=== PATIENT | female | born 1985 | race Caucasian/White ===

== ENCOUNTER 2016-12-07 16:29 | Inpatient (IN) | payer BC ==
[2016-12-07] VITALS (40 sets, daily range): BP systolic 69–153; BP diastolic 44–109; PULSE 98–148; RESP 16–18; TEMP 98.5
[~2016-12-07] VITALS: Ht 152.4 cm; Wt 94.8 kg
--- NOTE | 2016-12-07 17:43 | PD ---
HPI Chief Complaint contractions Date Seen: Dec 07, 2016 Travel History International Travel<30 Days: No Contact w/Intl Traveler<30Days: No Known Affected Area: No History of Present Illness HPI This is a 31y/o at 37w who presents to the [facility] with reports of contractions since last night. She reports the pain has been pretty consistent for the last 12 hours. She denies vaginal bleeding or leakage of fluid with reports of active movements. She plans for a TOLAC and will likely elect for an epidural. care with Dr. Desai, complicated by: 1. Previous c/s desires TOLAC 2. demise of at 7 weeks of age due to SIDS Para: 1 : 2 History Past Medical History Medical History: Denies Significant Hx Obstetric History Obstetric History 09/29/2015 41w5d Primary c/s due to NRFHT, Male 8lb7oz Past Surgical History Narrative Surgical Previous c/s Family History Family History: Negative Social History Alcohol Use: No Tobacco Use: No Substance Abuse: No Review of Systems Except as stated in HPI: all other systems reviewed are Neg Physical Exam Narrative GENERAL: Well-nourished, well-developed patient. SKIN: Warm and dry. HEAD: Normocephalic and atraumatic. EYES: No scleral icterus. No injection or drainage. ENT: No nasal drainage noted. Mucous membranes pink. Airway patent. NECK: Supple, trachea midline. No JVD. CARDIOVASCULAR: Regular rate and rhythm without murmurs, gallops, or rubs. RESPIRATORY: Breath sounds equal bilaterally. No accessory muscle use. BREASTS: Bilateral exam showed no masses , no retractions, no nipple discharge. ABDOMEN/GI: Abdomen soft, non-tender, bowel sounds present, no rebound, no guarding Gravid to 37 weeks size GENITOURINARY: External Genitalia: intact and normal in appearance Cervix: 4-5/70/-1 Membranes: intact Uterine Contractions: q 1-2 minutes apart Presentation: cephalic on bedside ultrasound FHT's: Category: 1 EXTREMITIES: No cyanosis or edema. BACK: Nontender without obvious deformity. No CVA tenderness. NEUROLOGICAL: Awake and alert. Motor and sensory grossly within normal limits. Five out of 5 muscle strength in all muscle groups. Normal speech. Data Data Vital Signs Reviewed: Yes Orders Ob (2e) Additional Admit Info (12/07/16 17:29) MDM Medical Record Reviewed: No Narrative Course / MDM This is a 31y/o at 37w with previous c/s desires TOLAC. -reassuring status -GBS negative per patient Plan -Admit for delivery, TOLAC -epidural when desires -Dr. Ramos aware Diagnosis Diagnosis: Primary Impression: Previous delivery affecting Additional Impression: 37 weeks gestation of Sushma Guerin MD Dec 07, 2016 17:43
[2016-12-07] MEDS ORDERED: LACTATED RINGER'S 1000 ML INJ 1,000 ML IV SCH (17:44)
[2016-12-07] MEDS ORDERED: LACTATED RINGER'S 1000 ML INJ 1,000 ML IV PRN (17:44)
[2016-12-07] MEDS ORDERED: SODIUM CHLORID 0.9% 500 ML INJ 500 ML IV PRN (17:45)
[2016-12-07] MEDS ORDERED: LIDOCAINE HCL 1% 50 ML VIAL I-DERMAL PRN (17:45)
[2016-12-07] MEDS ORDERED: MINERAL OIL 10 ML VIAL TOPICAL PRN (17:45)
[2016-12-07] MEDS ORDERED: ONDANSETRON HCL 4 MG/2 ML VIAL IV PRN (17:45)
[2016-12-07] MEDS ORDERED: CITRIC ACID-SODIUM CITRATE LIQ 30 ML UDC PO SCH (17:45)
[2016-12-07] MEDS ORDERED: OXYTOCIN 30 UNITS-500ML PREMIX 500 ML IV ONE (17:45)
[2016-12-07] MEDS ORDERED: LIDOCAINE HCL 1% 50 ML VIAL INFIL PRN (17:45)
[2016-12-07] MEDS ORDERED: SODIUM CHLOR 0.9% 1000 ML INJ 1,000 ML IV PRN (18:04)
[2016-12-07 18:09] LABS: AUTOMATED NEUTROPHIL # 15.3 TH/MM3 (1.8-7.7); BASOPHIL % 0.3 % (0.0-2.0); EOSINOPHIL % 0.1 % (0.0-4.0); HEMATOCRIT 41.4 % (35.0-46.0); HEMO FLAGS DIFF FINAL; LYMPHOCYTE # 1.6 TH/MM3 (1.0-4.8); MEAN CELL VOLUME 91.9 FL (80.0-100.0); MEAN CORPUSCULAR HEMOGLOBIN 30.6 PG (27.0-34.0); MEAN CORPUSCULAR HGB CONC 33.3 % (32.0-36.0); MONO % 4.8 % (0.0-8.0); NEUT % 85.8 % (16.0-70.0); PLATELET COUNT 197 TH/MM3 (150-450); RED BLOOD COUNT 4.51 MIL/MM3 (4.00-5.30); RED CELL DISTRIBUTION WIDTH 13.6 % (11.6-17.2); WHITE BLOOD COUNT 17.8 TH/MM3 (4.0-11.0)
[2016-12-07 18:10] LABS: BLOOD, URINE NEG (NEG); COMMENT (UR) CULT NOT INDICATED; CULTURE IF INDICATED CULT NOT INDICATED; GLUCOSE,URINE TRACE mg/dL (NEG); KETONE, URINE 10 mg/dL (NEG); MUCUS URINE FEW /lpf (OCC); NITRITE,URINE NEG (NEG); SQUAMOUS EPITHELIAL CELL URINE 3 /hpf (0-5); URINE COLOR YELLOW (YELLW/STRAW)
[2016-12-07] MEDS ORDERED: fentaNYL 2MCG-BUPIV 0.125% INJ 100 ML ONE (18:28)
[2016-12-07] MEDS ORDERED: ePHEDrine/NS 25 MG/5 ML SYR ONE (18:35)
[2016-12-07] MEDS ORDERED: ePHEDrine/NS 25 MG/5 ML SYR IV PRN (19:45)
[2016-12-07] MEDS ORDERED: DO NOT ADMINISTER ANTICOAGULANTS PRN (20:00)
[2016-12-07] MEDS ORDERED: fentaNYL 2MCG-BUPIV 0.125% 100 ML EPIDURAL SCH (20:00)
[2016-12-07] MEDS ORDERED: NO SYSTEM NARCOTICS PRN (20:00)
--- NOTE | 2016-12-07 22:59 | PD.OB.DELI ---
Delivery Date: Dec 07, 2016 Anesthesia: Epidural Episiotomy: None Vaginal Delivery: Normal Presentation: Occiput anterior Nuchal Cord: x2 Delayed cord clamping (45 sec): No Infant: Male, Single One Minute : 8 Five Minute : 9 Weight: 6-15 Placenta: Spontaneous delivery, Intact, 3 vessel cord Laceration: Vaginal laceration, 2 deg (repaired with 2-0 chromic in running fashion) Additional Information right labial laceration repaired with 2-0 chromic in running fashion left periurethral laceration repaired with 3-0 chromic in running fashion Dioni Ramos MD Dec 07, 2016 22:59
[2016-12-08 02:10] VITALS: BP 110/68; PULSE 109; RESP 18; TEMP 99
[2016-12-08] MEDS ORDERED: ONDANSETRON ODT 4 MG TAB PO PRN (05:30)
[2016-12-08] MEDS ORDERED: WITCH HAZEL 50%/GLYCERIN 12.5% 40 PAD JAR TOPICAL PRN (05:30)
[2016-12-08] MEDS ORDERED: DISCONTINUE ALL PREVIOUS ORDERS ONE (05:30)
[2016-12-08] MEDS ORDERED: ALUMINUM/MAGNESIUM/SIMETH 30 ML CUP PO PRN (05:30)
[2016-12-08] MEDS ORDERED: BENZOCAINE 20% TOPICAL SPRAY 60 ML CAN TOPICAL PRN (05:30)
[2016-12-08] MEDS ORDERED: DOCUSATE SODIUM 50 MG/SENNA 8.6 MG TAB PO PRN (05:30)
[2016-12-08] MEDS ORDERED: ZOLPIDEM TARTRATE 5 MG TAB PO PRN (05:30)
[2016-12-08] MEDS: IBUPROFEN 600 MG TAB PO PRN ×3 (05:34→20:24)
[2016-12-08] MEDS: ACETAMINOPHEN 325 MG TAB PO PRN ×3 (05:34→20:25)
[2016-12-08 07:53] VITALS: BP 110/98; PULSE 78; RESP 18; TEMP 98
--- NOTE | 2016-12-08 10:49 | HHI.OB ---
Subjective Post Day: 1 Remarks pain controlled, mod lochia, izabella po, +void/flatus Objective Vitals/I&O Vital Signs Date Time Temp Pulse Resp B/P Pulse Ox O2 Delivery O2 Flow Rate FiO2 12/08/16 07:53 78 18 110/98 12/08/16 07:53 98.0 12/08/16 02:10 99.0 12/08/16 02:10 109 18 110/68 12/07/16 23:38 18 12/07/16 23:15 18 12/07/16 22:45 18 12/07/16 22:31 104 101/67 12/07/16 22:30 18 12/07/16 22:03 18 12/07/16 22:01 135 90/44 12/07/16 21:31 111 103/54 12/07/16 21:24 18 12/07/16 21:16 106 103/55 12/07/16 21:15 18 12/07/16 21:01 98 107/72 12/07/16 21:00 18 12/07/16 20:47 108 153/90 12/07/16 20:30 105 131/86 12/07/16 20:29 18 12/07/16 20:16 121 119/75 12/07/16 20:15 98.5 12/07/16 20:03 18 12/07/16 20:01 102 121/85 12/07/16 20:00 18 12/07/16 19:45 18 12/07/16 19:45 100/73 12/07/16 19:32 109 69/45 12/07/16 19:30 18 12/07/16 19:25 102 12/07/16 19:20 99 12/07/16 19:16 105 95/60 12/07/16 19:15 100 12/07/16 19:13 18 12/07/16 19:12 148 149/109 12/07/16 19:10 115 12/07/16 19:07 16 12/07/16 19:05 107 12/07/16 19:00 105 124/94 12/07/16 19:00 103 12/07/16 19:00 18 12/07/16 18:55 101 12/07/16 18:55 101 114/100 12/07/16 18:54 117/88 12/07/16 18:50 105 12/07/16 18:45 109 12/07/16 18:45 16 12/07/16 18:42 133 87/64 12/07/16 18:28 18 12/07/16 18:00 16 12/07/16 17:24 98 138/89 Objective Remarks GENERAL: Well-nourished, well-developed patient. CARDIOVASCULAR: Regular rate and rhythm without murmurs, gallops, or rubs. RESPIRATORY: Breath sounds equal bilaterally. No accessory muscle use. ABDOMEN/GI: Abdomen soft, non-tender. Fundus: Firm, non-tender at umbilicus. GENITOURINARY: Light to moderate bleeding. EXTREMITIES: No cyanosis or edema, non-tender, without signs of DVT. Medications and IVs Current Medications Medications (Trade) Dose Ordered Sig/Radha Route Start Time Stop Time Status Last Admin Miscellaneous Information No systemic narcotics to be given except... UNSCH PRN .XX 12/07/16 20:00 12/08/16 19:59 Miscellaneous Information DO NOT ADMINISTER ANY ANTICOAGUL... UNSCH PRN .XX 12/07/16 20:00 12/08/16 19:59 (Tylenol) 650 mg Q4H PRN PO 12/08/16 05:30 12/08/16 05:34 (Motrin) 600 mg Q6H PRN PO 12/08/16 05:30 12/08/16 05:34 (Americaine 20% Top Spr) 1 spray Q4H PRN TOPICAL 12/08/16 05:30 (Tucks Pads) 1 applic Q6H PRN TOPICAL 12/08/16 05:30 (Aniya-Colace) 2 tab Q12H PRN PO 12/08/16 05:30 (Ambien) 5 mg HS PRN PO 12/08/16 05:30 (M-M-R Ii Inj) 0.5 ml ONCE ONCE SQ 12/08/16 16:00 12/08/16 16:01 (Boostrix Inj) 0.5 ml ONCE ONCE IM 12/08/16 16:00 12/08/16 16:01 (Mag-Al Plus Susp Liq) 15 ml Q8H PRN PO 12/08/16 05:30 (Zofran Odt) 4 mg Q6H PRN PO 12/08/16 05:30 Assessment/Plan Problem List: (1) Previous delivery affecting (2) , delivered, current hospitalization Plan: routine pp care Dioni Ramos MD Dec 08, 2016 10:49
[2016-12-08] MEDS ORDERED: IBUP-232 PO (10:51)
--- NOTE | 2016-12-08 10:51 | HHI.DCPOC ---
Discharge Care Plan Diagnosis: (1) , delivered, current hospitalization Your Health Problems Are: Vaginal delivery Report Symptoms to Your Doctor -Temperature above 100.5 degrees -Redness, of incision or excessive or foul smelling drainage -Unusual pain or calf pain -Increased vaginal bleeding -Painful or difficulty urinating -Feelings of extreme sadness or anxiety after 2 weeks Goals to Promote Your Health * To prevent worsening of your condition and complications * To maintain your health at the optimal level Directions to Meet Your Goals Take your medications as prescribed Follow your dietary instruction Follow activity as directed Ensure plenty of rest for recovery Drink fluids for hydration Keep your appointments as scheduled Take your immunizations and boosters as scheduled If your symptoms worsen call your PCP, if no PCP go to Urgent Care Center or Emergency Room Smoking is Dangerous to Your Health. Avoid second hand smoke Call the 24-hour crisis hotline for domestic abuse at Dioni Ramos MD Dec 08, 2016 10:51
[2016-12-08] MEDS ORDERED: DIPHTH/TETANUS/ACEL PERTUSSIS (BOOSTER) 0.5 ML VIAL/PFS IM ONE (16:00)
[2016-12-08] MEDS ORDERED: MEASLES, MUMPS, RUBELLA VACCINE 0.5 ML VIAL SQ ONE (16:00)
[2016-12-08 20:07] VITALS: BP 110/68; PULSE 111; RESP 14; TEMP 98.5
[2016-12-09 10:00] VITALS: BP 123/79; PULSE 89; RESP 18; TEMP 98.5
[2016-12-09] MEDS: IBUPROFEN 600 MG TAB PO PRN (10:19)
[2016-12-09] MEDS: ACETAMINOPHEN 325 MG TAB PO PRN (10:19)
== END 2016-12-09 14:11 | disposition home or self-care (01) | DRG 775 ==
LOC: HOBED 16:29 → H2EA 17:37 → H2EB 17:46 → H1EA 12-08 00:43
PROVIDERS: ADMIT Obstetrics & Gynecology; ATTEND Obstetrics & Gynecology
PROC: 10E0XZZ Delivery of Products of Conception, External Approach (ICD-10-PCS; principal; 2016-12-07)
PROC: 0KQM0ZZ Repair Perineum Muscle, Open Approach (ICD-10-PCS; 2016-12-07)
PROC: 0UQMXZZ Repair Vulva, External Approach (ICD-10-PCS; 2016-12-07)
PROC: 00HU33Z Insertion of Infusion Device into Spinal Canal, Percutaneous Approach (ICD-10-PCS; 2016-12-07)
PROC: 3E0R3CZ (ICD-10-PCS; 2016-12-07)
DX: O70.1 Second degree perineal laceration during delivery (principal); Z37.0 Single live birth; O69.81X0 Labor and delivery complicated by cord around neck, without compression, not applicable or unspecified; O34.219 Maternal care for unspecified type scar from previous cesarean delivery; Z3A.37 37 weeks gestation of pregnancy; O70.0 First degree perineal laceration during delivery; O71.82 Other specified trauma to perineum and vulva
CPT/HCPCS: 81001; 85025; 86900; 86901; J2590; J3010; J7120